=== PATIENT | male | born 1985 | race American Indian/Alaskan Native ===

== ENCOUNTER 2021-08-18 08:50 | Outpatient (CLI) | payer OTHER ==
--- NOTE | 2021-08-18 11:23 | XRay Report ---
CHEST 2 VIEWS INDICATION: RULE OUT ACTIVE TB. COMPARISON: none FINDINGS: Support devices: None. Heart: Within normal limits. Lungs/pleura: No acute air space or interstitial disease. No pleural abnormality or pneumothorax. Additional findings: None. IMPRESSION: No acute findings. No x-ray findings to suggest primary or reactive tuberculosis. Signer Name: Vinay Miranda Jr, MD Signed: 08/18/2021 11:18 AM Workstation Name: [id number]
== END 2021-08-18 08:51 | disposition home or self-care (01) ==
LOC: XRAY 08:50
PROVIDERS: ATTEND Internal Medicine
DX: A15.9 Respiratory tuberculosis unspecified (principal)
CPT/HCPCS: 71046